=== PATIENT | female | born 1990 | race Caucasian/White ===

== ENCOUNTER 2023-06-19 14:41 | Emergency (ER) | payer OTHER ==
[2023-06-19 14:51] VITALS: BP 121/80; PULSE 72; RESP 18; TEMP 98.5; BMI 28.3
[2023-06-19] MEDS ORDERED: ACETAMINOPHEN 500 MG TABLET (FP) PO ONE (16:16)
[2023-06-19] MEDS ORDERED: diphenhydrAMINE HCL 25 MG CAPSULE (FP) PO ONE ×2 (16:17→16:20)
[2023-06-19] MEDS ORDERED: ACETAMINOPHEN 500 MG TABLET (FP) ONE (16:21)
[2023-06-19] MEDS ORDERED: TETRACAINE 0.5% HCL 0.6ML DROPPER.BOTTLE OS ONE (16:30)
[2023-06-19] MEDS ORDERED: FLUORESCEIN NA 1 EA STRIP OS ONE (16:31)
[2023-06-19] MEDS ORDERED: TETRACAINE 0.5% OPHTH SOLN 2 ML BOTTLE ONE (16:34)
[2023-06-19] MEDS ORDERED: FLUORESCEIN NA 1 EA STRIP ONE (16:34)
== END 2023-06-19 17:25 | disposition home or self-care (01) ==
LOC: JERFT 14:41
DX: R21 Rash and other nonspecific skin eruption (principal); B02.9 Zoster without complications; R51.9 Headache, unspecified; H02.846 Edema of left eye, unspecified eyelid
CPT/HCPCS: 99283-25